=== PATIENT | male | born 1995 | race Caucasian/White ===

== ENCOUNTER 2016-09-18 17:15 | Emergency (ER) | payer BC ==
--- NOTE | ~2016-09-18 | ER ---
PATIENT'S NAME: ERIN WRIGHT [facility] AGE: 21 Y [address] ROOM: [place] [address] LOCATION: [facility] ADMIT DATE: 09/18/2016 ER/Outpatient Report DISCHARGE DATE: 09/18/2016 FAMILY PHYSICIAN: Arnold Navas MD ATTENDING PHYSICIAN: Juan Sánchez Time of Arrival: 1715 hours. Time of Evaluation: 1745 hours. CHIEF COMPLAINT: Natural gas exposure. HISTORY OF PRESENT ILLNESS: This is a 21-year-old male, who presents to the ER. He states that he was exposed to some natural gas. He states he lives in an apartment building, and his neighbor had his oven gas running for approximately 24 hours. He states that he was there sleeping last night, but was gone for most of the day at work today, and when he returned home is when he was told there was a gas exposure. He felt lightheaded and had a slight headache, and so he thought he better come and get evaluated. He denies any other symptoms at this time. ALLERGIES: NO KNOWN ALLERGIES. MEDICATIONS: None. PAST MEDICAL HISTORY: Tonsillectomy. SOCIAL HISTORY: Drinks alcohol occasionally. REVIEW OF SYSTEMS: All systems were reviewed and were negative with the exception of those discussed in the HPI. PHYSICAL EXAMINATION: VITAL SIGNS: Height 5 feet 1 inch stated, weight 66 kg taken, blood pressure is 104/64, pulse 84, respirations 16, temperature 98 degrees tympanically, saturations 98% on room air. Cuong Coma Score is 15. GENERAL: Alert, calm, well-developed male, in no acute distress. HEENT: Head: Normocephalic. He does display moist mucous membranes. LUNGS: Clear to auscultation bilaterally. HEART: Regular rate and rhythm. PATIENT'S NAME: ERIN WRIGHT [facility] AGE: 21 Y [address] ROOM: [place] [address] LOCATION: [facility] ADMIT DATE: 09/18/2016 ER/Outpatient Report DISCHARGE DATE: 09/18/2016 FAMILY PHYSICIAN: Arnold Navas MD ATTENDING PHYSICIAN: Juan Sánchez EXTREMITIES: No clubbing or cyanosis. He has full range of motion of all limbs. SKIN: Warm, dry, and intact. LABORATORY DATA: CBC: White count is 5.3, hemoglobin is 13.7, carboxyhemoglobin is 0.0, hemoglobin from GEM is 14.3. IMPRESSION: Exposure to natural gas. ASSESSMENT AND PLAN: I did give the patient reassurance. I advised him to continue to his monitor his symptoms. Follow up with primary care physician if needed. The patient understands and agrees with care. CEASAR AGUAYO PA-C FOR DO NEIDA LA/viancal /[id number] d: t: 09/25/16 1349, OUTPATIENT REPORT
[2016-09-18 18:01] LABS: BASOPHIL % 0.4 %; EOSINOPHIL % 0.6 %; HEMATOCRIT 38.1 % (37.0-53.0); HEMOGLOBIN 13.7 g/dL (12.0-17.0); IMMATURE GRANULOCYTE % 0.2 %; LYMPHOCYTE # 1.1 K/uL (0.8-4.0); LYMPHOCYTE % 21.1 %; MCH 32.5 pg (27.0-34.0); MCV 90.3 fl (83.0-98.0); MONOCYTE # 0.5 K/uL (0.0-1.0); MONOCYTE % 9.4 %; MPV 9.5 fl (9.4-12.4); NEUTROPHIL # (ANC) 3.6 K/uL (1.4-9.0); NEUTROPHIL % 68.3 %; NRBC % 0 /100WBC (0-0.00); PLATELET COUNT 200 K/uL (150-450); RBC 4.22 M/uL (4.00-6.00); RDW-CV 11.5 % (11.9-14.6); WBC 5.3 K/uL (4.0-11.0)
== END 2016-09-18 18:20 | disposition disaster alternative care site (69) ==
LOC: GACC 17:15
PROVIDERS: Physician Assistant Medical
DX: Z77.29 Contact with and (suspected) exposure to other hazardous substances (principal); R42 Dizziness and giddiness; R51 Headache; Z90.89 Acquired absence of other organs; Y92.039 Unspecified place in apartment as the place of occurrence of the external cause